=== PATIENT | female | born 1990 | race Caucasian/White ===

== ENCOUNTER → 2017-01-13 | Outpatient (CLI) | payer OTHER ==
--- NOTE | 2017-01-13 10:52 | REP ---
SACRUM AND COCCYX, THREE VIEWS: HISTORY: Pain. COMPARISON: 09/12/2016. There is no acute fracture or subluxation. The L3-4 through L5-S1 intervertebral discs are normal in height. IMPRESSION: There is no acute fracture or subluxation. Signed by Wilfredo Bernal MD 01/13/2017 11:01 A
== END ==
LOC: M LRY 09:07
PROVIDERS: ATTEND Family Medicine
DX: M53.3 Sacrococcygeal disorders, not elsewhere classified (principal)
CPT/HCPCS: 72220; G0463

== ENCOUNTER → 2017-02-03 | Outpatient (REF) | payer OTHER | LOC: M SFHCWAGY 10:05 | PROVIDERS: ATTEND Nurse Practitioner Women's Health | DX: Z12.4 Encounter for screening for malignant neoplasm of cervix (principal); R87.610 Atypical squamous cells of undetermined significance on cytologic smear of cervix (ASC-US) ==

== ENCOUNTER → 2017-03-18 | Outpatient (CLI) | payer OTHER ==
--- NOTE | 2017-03-18 15:24 | REP ---
REASON: Chronic back pain. No priors. Vertebral body height and alignment is within normal limits. The disc spaces are preserved throughout with normal disc hydration at every level. The marrow signal is within normal limits. There is no abnormal signal seen in the imaged portion of the spinal cord. At the L1-2 level, there is no disc herniation, foraminal narrowing, or central canal stenosis. At the L2-3 level, there is no disc herniation, foraminal narrowing or central canal stenosis. AT the L3-4 level, there is no disc herniation, foraminal narrowing or central canal stenosis. At the L4-5 level, there is no disc herniation, foraminal narrowing or central canal stenosis. At the L5-S1 level, there is no disc herniation, foraminal narrowing or central canal stenosis. IMPRESSION: Findings are within normal limits. Signed by Chilo Gross DO 03/18/2017 04:02 P
--- NOTE | 2017-03-18 15:38 | REP ---
MRI PELVIS: TECHNIQUE: Multiple sequences obtained in the axial, coronal and sagittal planes. Images are centered at the sacrum and coccyx. The sacrum and coccyx demonstrate normal marrow signal. There is no bone marrow edema or occult fracture. There is no abnormal signal or edema at the sacroiliac joints. There is no evidence of sacroiliitis. In the visualized portions of the pelvis, the uterus is noted to be retroverted. There is a tiny amount of adjacent free fluid which is likely physiologic in nature. The ovaries are visualized and appear essentially unremarkable with normal sized follicles bilaterally. No adenopathy is seen in the visualized pelvis. IMPRESSION: Negative exam. Signed by Nicho Pierre MD 03/18/2017 05:06 P
== END ==
LOC: M RAD 13:16
PROVIDERS: ATTEND Family Medicine
DX: G89.21 Chronic pain due to trauma (principal); M53.3 Sacrococcygeal disorders, not elsewhere classified

== ENCOUNTER → 2017-06-17 | Outpatient (REF) | payer OTHER | LOC: M SFHCLERA 19:18 | PROVIDERS: ATTEND Nurse Practitioner Family | DX: J02.9 Acute pharyngitis, unspecified (principal) ==